=== PATIENT | male | born 1960 | race Caucasian/White ===

== ENCOUNTER → 2017-01-18 | Outpatient (CLI) | payer BC ==
[~2017-01-18] MED LIST: ADVAIR HFA120 INHAL1 IH; ATIVAN2 MG PO; BISOPROLOL FUMAR5 MG PO; BISOPROLOL-HCT1 EAC1 PO; DIOVAN160 MG PO; LOSARTAN POTAS100 MG PO; LOSARTAN-HCTZ1 EAC2 PO; OXYCODONE HCL5 MG PO; PANTOPRAZOLE SO40 MG PO; POTASSIUM CHLO20 ME1 PO; PRADAXA150 MG PO; SENNA-TIME S T1 EACH PO; THERAGRAN1 TABLET PO; VITAMIN B-1100 MG PO; ZIAC
== END | disposition home or self-care (01) ==
LOC: NUC 08:58
DX: S22.32XA Fracture of one rib, left side, initial encounter for closed fracture (principal); R93.7 Abnormal findings on diagnostic imaging of other parts of musculoskeletal system
CPT/HCPCS: 78306; A9503

== ENCOUNTER → 2017-03-09 | Outpatient (CLI) | payer BC ==
[2017-03-09 10:37] LABS: BASOPHIL COUNT 0.1 K/uL (0-0.1); EOSINOPHIL (%) 0.8 % (0-5); EOSINOPHIL COUNT 0.1 K/uL (0-0.3); HEMATOCRIT 49.5 % (38.0-50.0); IMMATURE GRANULOCYTE (%) 0.4 % (0.0-0.7); INSTRUMENT ABS NEUTROPHIL CT 6.7 K/uL; LYMPHOCYTE COUNT 2.7 K/uL (1.0-2.8); MCH 29.5 PG (29.0-34.0); MCHC 32.9 G/DL (30.0-36.0); MCV 89.5 FL (86-99); MEAN PLAT.VOLUME 9.4 uM^3 (9.0-12.4); MONOCYTE (%) 9.7 % (3-12); NEUTROPHIL (%) 62.9 % (45-76); NEUTROPHIL COUNT 6.7 K/uL (1.8-6.4); PLATELET COUNT 309 K/uL (156-360); RBC DIS.WIDTH-CV 14.2 % (11.8-14.6); RBC DIS.WIDTH-SD 46.7 % (39-53); RED BLOOD COUNT 5.53 M/uL (4.00-5.50); WHITE BLOOD COUNT 10.6 K/uL (4.1-10.2)
[2017-03-09 10:41] LABS: PROTHROMBIN TIME 10.6 (9.2-11.2); PTT 29.1 (25-32)
[2017-03-09 12:24] LABS: ANISOCYTOSIS 1+
[2017-03-09 12:25] LABS: POIKILOCYTOSIS 2+
[2017-03-09 12:26] LABS: PLAT.SUFFICIENCY ADEQUATE
[2017-03-12 12:42] LABS: Flow Number of Markers 24 (()); Flow Spec Viability 95 % (()); Flow Specimen Type BONE MARROW (())
== END | disposition home or self-care (01) ==
LOC: OPR 03-06 10:00 → EDSTATUS 10:00
PROVIDERS: Internal Medicine Medical Oncology
DX: D47.2 Monoclonal gammopathy (principal); I48.91 Unspecified atrial fibrillation; J44.9 Chronic obstructive pulmonary disease, unspecified; I10 Essential (primary) hypertension; E11.9 Type 2 diabetes mellitus without complications; F17.210 Nicotine dependence, cigarettes, uncomplicated; Z79.02 Long term (current) use of antithrombotics/antiplatelets; Z83.3 Family history of diabetes mellitus; Z81.1 Family history of alcohol abuse and dependence
CPT/HCPCS: 77012; 85025; 85610; 85730; 85999; 88184 90; 88185 90; 88189 90; J3010

== ENCOUNTER 2017-05-06 22:05 | Inpatient (IN) | payer BC ==
[~2017-05-06] VITALS: Ht 185.4 cm; Wt 103.6 kg
[2017-05-06 22:53] LABS: MCH 27.8 PG (29.0-34.0); MCHC 35.2 G/DL (30.0-36.0); MCV 78.8 FL (86-99); MEAN PLAT.VOLUME 9.5 uM^3 (9.0-12.4); PLATELET COUNT 178 K/uL (156-360); RBC DIS.WIDTH-CV 15.1 % (11.8-14.6); RBC DIS.WIDTH-SD 42.4 % (39-53); RED BLOOD COUNT 6.09 M/uL (4.00-5.50)
[2017-05-06 22:57] LABS: CARBON DIOXIDE (BICARBONATE) 19.3 MEQ/L (20-31)
[2017-05-06 22:59] LABS: INTER. NORMALIZED RATIO 0.9
[2017-05-06 23:01] LABS: PTT 37.9 SEC (25-37)
[2017-05-06 23:04] LABS: CHLORIDE 92 mEq/L (99-109); POTASSIUM 4.2 mEq/L (3.7-5.4); SODIUM 124 mEq/L (136-147)
[2017-05-06 23:06] LABS: GLUCOSE 117 mg/dL (70-99)
[2017-05-06 23:07] LABS: ANION GAP 15 MEQ/L (2-14)
[2017-05-06 23:08] LABS: TOTAL BILIRUBIN 1.1 mg/dL (0.0-1.0)
[2017-05-06 23:09] LABS: ALKALINE PHOSPHATASE 135 IU/L (3-129); SERUM ETHYL ALCOHOL < 10 mg/dL
[2017-05-06 23:10] LABS: GFR ESTIMATE (CALCULATED) > 59 mL/min/
[2017-05-06 23:11] LABS: UREA NITROGEN (BUN) 9 mg/dL (9-23)
[2017-05-06 23:13] LABS: LIPASE 52 U/L (1.0-51.0); TOTAL CK 2576 IU/L (1-294)
[2017-05-06 23:19] LABS: TROP-I INTERPRETATION NEGATIVE; TROPONIN-I 0.01 ng/mL (0.0-0.30)
[2017-05-06 23:20] LABS: CK-MB 22.1 ng/mL (0.0-4.9)
[2017-05-06 23:31] LABS: CREATINE KINASE 2576 IU/L (1-294)
[2017-05-07] VITALS (18 sets, daily range): BP systolic 128–179; BP diastolic 76–147
[2017-05-07] MEDS ORDERED: BISOPROLOL FUMAR5 MG PO (00:03)
[2017-05-07 04:39] LABS: MAGNESIUM 1.4 mg/dL (1.3-2.7)
[2017-05-07 05:45] LABS: METH RESISTANT S AUREUS PCR NEGATIVE (NEGATIVE)
[2017-05-07 05:47] LABS: PROBE CHECK PASS; SPECIMEN PROCESSING CONTROL PASS
[2017-05-07 07:08] LABS: ANION GAP 6 MEQ/L (2-14); CHLORIDE 95 MEQ/L (99-109); GFR ESTIMATE (CALCULATED) > 59 mL/min/; GLUCOSE 111 mg/dL (70-99); MAGNESIUM 1.7 mg/dl (1.3-2.7); POTASSIUM 4.5 MEQ/L (3.7-5.4); SAMPLE HEMOLYSIS CHECK 0; SAMPLE ICTERIC CHECK 0; SAMPLE LIPEMIA CHECK 0; SODIUM 127 MEQ/L (136-147); UREA NITROGEN (BUN) 8 mg/dL (9-23)
[2017-05-07 07:15] LABS: CREATINE KINASE 1564 IU/L (1-294)
[2017-05-08] VITALS (25 sets, daily range): BP systolic 44–177; BP diastolic 30–115
[2017-05-08 10:13] LABS: BASOPHIL COUNT 0.1 K/uL (0-0.1); EOSINOPHIL (%) 0.9 % (0-5); EOSINOPHIL COUNT 0.1 K/uL (0-0.3); HEMATOCRIT 45.4 % (38.0-50.0); IMMATURE GRANULOCYTE (%) 0.7 % (0.0-0.7); IMMATURE GRANULOCYTE COUNT 0.1 K/uL; INSTRUMENT ABS NEUTROPHIL CT 6.1 K/uL; LYMPHOCYTE COUNT 2.7 K/uL (1.0-2.8); MCH 28.9 PG (29.0-34.0); MCHC 34.6 G/DL (30.0-36.0); MEAN PLAT.VOLUME 10.7 uM^3 (9.0-12.4); MONOCYTE (%) 12.2 % (3-12); MONOCYTE COUNT 1.2 K/uL (0-0.8); NEUTROPHIL (%) 59.5 % (45-76); NEUTROPHIL COUNT 6.1 K/uL (1.8-6.4); NRBC (%) 0.3 /100 WBC (0-0); PLATELET COUNT 150 K/uL (156-360); RBC DIS.WIDTH-CV 16.2 % (11.8-14.6); RBC DIS.WIDTH-SD 47.6 % (39-53); RED BLOOD COUNT 5.44 M/uL (4.00-5.50); WHITE BLOOD COUNT 10.2 K/uL (4.1-10.2)
[2017-05-08 10:15] LABS: MCV 83.5 FL (86-99); PROTHROMBIN TIME 11.1 SEC (10.2-12.9)
[2017-05-08 10:18] LABS: PTT 46.6 SEC (25-37)
[2017-05-08 10:25] LABS: ADD MIUA? YES; BILIRUBIN NEGATIVE; BLOOD LARGE; COLOR YELLOW ((YELLOW)); GLUCOSE (STRIP) 50; KETONES 5; LEUKOCYTES NEGATIVE; NITRITE NEGATIVE; PROTEIN (STRIP) NEGATIVE; SPECIFIC GRAVITY 1.009 (1.000-1.030)
[2017-05-08 10:39] LABS: RED BLOOD CELLS TNTC /HPF (0-5); WHITE BLOOD CELLS 0-5 /HPF (0-5)
[2017-05-08 10:40] LABS: BACTERIA RARE /HPF; EPITHELIAL CELLS RARE /HPF; MUCUS RARE /LPF; UCUL ADDED? YES
[2017-05-08 10:43] LABS: ALKALINE PHOSPHATASE 106 IU/L (3-129); ANION GAP 7 MEQ/L (2-14); CHLORIDE 94 MEQ/L (99-109); GFR ESTIMATE (CALCULATED) > 59 mL/min/; GLUCOSE 92 mg/dL (70-99); POTASSIUM 4.3 MEQ/L (3.7-5.4); SAMPLE HEMOLYSIS CHECK 0; SAMPLE ICTERIC CHECK 0; SAMPLE LIPEMIA CHECK 0; SODIUM 127 MEQ/L (136-147); TOTAL BILIRUBIN 1.3 MG/DL (0.0-1.0); UREA NITROGEN (BUN) 10 mg/dL (9-23)
[2017-05-08 16:58] LABS: ANION GAP 8 MEQ/L (2-14); CHLORIDE 91 MEQ/L (99-109); GFR ESTIMATE (CALCULATED) > 59 mL/min/; GLUCOSE 87 mg/dL (70-99); POTASSIUM 3.9 MEQ/L (3.7-5.4); SAMPLE HEMOLYSIS CHECK 0; SAMPLE ICTERIC CHECK 0; SAMPLE LIPEMIA CHECK 0; SODIUM 126 MEQ/L (136-147); UREA NITROGEN (BUN) 9 mg/dL (9-23)
[2017-05-09] VITALS (24 sets, daily range): BP systolic 115–197; BP diastolic 73–124
[2017-05-09 06:07] LABS: BASOPHIL COUNT 0.1 K/uL (0-0.1); EOSINOPHIL (%) 1.9 % (0-5); EOSINOPHIL COUNT 0.2 K/uL (0-0.3); IMMATURE GRANULOCYTE (%) 0.5 % (0.0-0.7); IMMATURE GRANULOCYTE COUNT 0.1 K/uL; INSTRUMENT ABS NEUTROPHIL CT 6.2 K/uL; LYMPHOCYTE COUNT 1.8 K/uL (1.0-2.8); MCHC 33.8 G/DL (30.0-36.0); MCV 82.9 FL (86-99); MEAN PLAT.VOLUME 11.3 uM^3 (9.0-12.4); MONOCYTE (%) 11.7 % (3-12); MONOCYTE COUNT 1.1 K/uL (0-0.8); NEUTROPHIL (%) 65.6 % (45-76); NEUTROPHIL COUNT 6.2 K/uL (1.8-6.4); NRBC (%) 0.2 /100 WBC (0-0); PLATELET COUNT 158 K/uL (156-360); RBC DIS.WIDTH-CV 15.8 % (11.8-14.6); RBC DIS.WIDTH-SD 46.8 % (39-53); RED BLOOD COUNT 5.43 M/uL (4.00-5.50); WHITE BLOOD COUNT 9.4 K/uL (4.1-10.2)
[2017-05-09 06:19] LABS: PROTHROMBIN TIME 10.9 SEC (10.2-12.9)
[2017-05-09 06:22] LABS: PTT 50.3 SEC (25-37)
[2017-05-09 06:35] LABS: ANION GAP 10 MEQ/L (2-14); CHLORIDE 91 MEQ/L (99-109); GFR ESTIMATE (CALCULATED) > 59 mL/min/; GLUCOSE 87 mg/dL (70-99); POTASSIUM 3.8 MEQ/L (3.7-5.4); SAMPLE HEMOLYSIS CHECK 0; SAMPLE ICTERIC CHECK 0; SAMPLE LIPEMIA CHECK 0; SODIUM 130 MEQ/L (136-147); UREA NITROGEN (BUN) 10 mg/dL (9-23)
[2017-05-09 08:19] LABS: BASE EXCESS 5.6 mEq/L (-3 to +3); BICARBONATE 28.9 mEq/L (22-26); CARBOXY HGB 2.4 % (0-5); METHEMOGLOBIN 1.3 % (0-1.5); PCO2 37 mm Hg (35-45); PO2 60 mm Hg (80-100)
[2017-05-09 08:35] LABS: COMMENTS - BLOOD GASES A+C+; DEVICE NC; O2 FLOW 3 L/MIN; SITE RR; TOTAL RESP RATE 28 resp/min
[2017-05-09 12:32] LABS: MAGNESIUM 1.5 mg/dl (1.3-2.7)
[2017-05-10] VITALS (24 sets, daily range): BP systolic 95–201; BP diastolic 65–152
[2017-05-10 04:47] LABS: HEMATOCRIT 46.1 % (38.0-50.0); MCHC 34.3 G/DL (30.0-36.0); MCV 81.7 FL (86-99); MEAN PLAT.VOLUME 10.2 uM^3 (9.0-12.4); NRBC (%) 0.2 /100 WBC (0-0); PLATELET COUNT 179 K/uL (156-360); RBC DIS.WIDTH-CV 15.9 % (11.8-14.6); RBC DIS.WIDTH-SD 46.6 % (39-53); RED BLOOD COUNT 5.64 M/uL (4.00-5.50); WHITE BLOOD COUNT 8.8 K/uL (4.1-10.2)
[2017-05-10 05:15] LABS: CHLORIDE 93 mEq/L (99-109); SODIUM 131 mEq/L (136-147)
[2017-05-10 05:17] LABS: GLUCOSE 91 mg/dL (70-99)
[2017-05-10 05:19] LABS: ANION GAP 15 MEQ/L (2-14)
[2017-05-10 05:21] LABS: GFR ESTIMATE (CALCULATED) > 59 mL/min/
[2017-05-10 05:22] LABS: UREA NITROGEN (BUN) 12 mg/dL (9-23)
[2017-05-10 06:15] LABS: BASE EXCESS 4.1 mEq/L (-3 to +3); BICARBONATE 29.2 mEq/L (22-26); CARBOXY HGB 2.2 % (0-5); METHEMOGLOBIN 1.5 % (0-1.5); PO2 52 mm Hg (80-100); pH 7.43 (7.35-7.45)
[2017-05-10 06:16] LABS: PCO2 44 mm Hg (35-45)
[2017-05-10 06:17] LABS: DEVICE NC; O2 FLOW 3 L/MIN; SITE RR; TOTAL RESP RATE 42 resp/min
[2017-05-10 12:00] LABS: BASE EXCESS 0 mEq/L (-3 to +3); BICARBONATE 25.4 mEq/L (22-26); CARBOXY HGB 1.9 % (0-5); METHEMOGLOBIN 1.5 % (0-1.5); PCO2 43 mm Hg (35-45); pH 7.38 (7.35-7.45)
[2017-05-10 12:01] LABS: COMMENTS - BLOOD GASES NAC+; DEVICE VENT; FI02 100 %; MECHANICAL RATE 18 resp/min; MODE A/C; PEEP 5 CM/H20; PO2 240 mm Hg (80-100); SITE RR; TIDAL VOLUME 500 ML; TOTAL RESP RATE 18 resp/min
[2017-05-11] VITALS (24 sets, daily range): BP systolic 94–176; BP diastolic 59–111
[2017-05-11 06:26] LABS: BASOPHIL COUNT 0.1 K/uL (0-0.1); EOSINOPHIL (%) 1.8 % (0-5); EOSINOPHIL COUNT 0.2 K/uL (0-0.3); HEMATOCRIT 44.5 % (38.0-50.0); IMMATURE GRANULOCYTE (%) 0.6 % (0.0-0.7); IMMATURE GRANULOCYTE COUNT 0.1 K/uL; INSTRUMENT ABS NEUTROPHIL CT 5.1 K/uL; LYMPHOCYTE COUNT 1.5 K/uL (1.0-2.8); MCHC 33.3 G/DL (30.0-36.0); MCV 84.3 FL (86-99); MEAN PLAT.VOLUME 10.3 uM^3 (9.0-12.4); MONOCYTE (%) 17.1 % (3-12); MONOCYTE COUNT 1.4 K/uL (0-0.8); NEUTROPHIL COUNT 5.1 K/uL (1.8-6.4); PLATELET COUNT 208 K/uL (156-360); RBC DIS.WIDTH-CV 16.3 % (11.8-14.6); RED BLOOD COUNT 5.28 M/uL (4.00-5.50); WHITE BLOOD COUNT 8.2 K/uL (4.1-10.2)
[2017-05-11 06:40] LABS: PROTHROMBIN TIME 11.3 SEC (10.2-12.9)
[2017-05-11 06:43] LABS: PTT 66.4 SEC (25-37)
[2017-05-11 07:57] LABS: ANION GAP 13 MEQ/L (2-14); CHLORIDE 99 MEQ/L (99-109); GFR ESTIMATE (CALCULATED) > 59 mL/min/; GLUCOSE 96 mg/dL (70-99); MAGNESIUM 1.9 mg/dl (1.3-2.7); SAMPLE HEMOLYSIS CHECK 0; SAMPLE ICTERIC CHECK 0; SAMPLE LIPEMIA CHECK 0; SODIUM 135 MEQ/L (136-147); UREA NITROGEN (BUN) 15 mg/dL (9-23)
[2017-05-11 10:41] LABS: BASE EXCESS 1.6 mEq/L (-3 to +3); BICARBONATE 27.2 mEq/L (22-26); CARBOXY HGB 1.8 % (0-5); METHEMOGLOBIN 1.6 % (0-1.5); PCO2 45 mm Hg (35-45); pH 7.39 (7.35-7.45)
[2017-05-11 10:42] LABS: COMMENTS - BLOOD GASES A+C+; DEVICE VENT; FI02 50 %; MECHANICAL RATE 18 resp/min; PEEP 5 CM/H20; PO2 89 mm Hg (80-100); SITE RR; TIDAL VOLUME 500 ML; TOTAL RESP RATE 18 resp/min
[2017-05-12] VITALS (29 sets, daily range): BP systolic 66–215; BP diastolic 47–139
[2017-05-12 05:43] LABS: HEMATOCRIT 43.2 % (38.0-50.0); MCH 28.1 PG (29.0-34.0); MCHC 32.9 G/DL (30.0-36.0); MCV 85.5 FL (86-99); MEAN PLAT.VOLUME 10.3 uM^3 (9.0-12.4); NRBC (%) 0.3 /100 WBC (0-0); PLATELET COUNT 236 K/uL (156-360); RBC DIS.WIDTH-CV 16.8 % (11.8-14.6); RED BLOOD COUNT 5.05 M/uL (4.00-5.50); WHITE BLOOD COUNT 11.9 K/uL (4.1-10.2)
[2017-05-13] VITALS (22 sets, daily range): BP systolic 93–146; BP diastolic 61–93
[2017-05-13 00:11] LABS: BASE EXCESS 1.4 mEq/L (-3 to +3); BICARBONATE 28.5 mEq/L (22-26); CARBOXY HGB 1.8 % (0-5); METHEMOGLOBIN 1.6 % (0-1.5); pH 7.33 (7.35-7.45)
[2017-05-13 00:12] LABS: COMMENTS - BLOOD GASES C+; DEVICE VENT; FI02 80 %; MECHANICAL RATE 16 resp/min; MODE AC; PCO2 54 mm Hg (35-45); PO2 123 mm Hg (80-100); PRES. SUPPORT 5 CM/H2O; SITE LR; TIDAL VOLUME 500 ML; TOTAL RESP RATE 16 resp/min
[2017-05-13 15:37] LABS: BASE EXCESS 1.2 mEq/L (-3 to +3); BICARBONATE 26.6 mEq/L (22-26); CARBOXY HGB 2.3 % (0-5); METHEMOGLOBIN 1.5 % (0-1.5); pH 7.39 (7.35-7.45)
[2017-05-13 15:38] LABS: COMMENTS - BLOOD GASES A+C+; DEVICE 840; FI02 45 %; MECHANICAL RATE 20 resp/min; MODE AC; PCO2 44 mm Hg (35-45); PEEP 5 CM/H20; PO2 65 mm Hg (80-100); SITE LR; TIDAL VOLUME 500 ML; TOTAL RESP RATE 20 resp/min
[2017-05-14] VITALS (23 sets, daily range): BP systolic 103–172; BP diastolic 73–115
[2017-05-14 13:02] LABS: ANION GAP 8 MEQ/L (2-14); CHLORIDE 100 MEQ/L (99-109); POTASSIUM 4.3 MEQ/L (3.7-5.4); SAMPLE HEMOLYSIS CHECK 0; SAMPLE ICTERIC CHECK 0; SAMPLE LIPEMIA CHECK 0; SODIUM 132 MEQ/L (136-147)
[2017-05-14 13:10] LABS: GFR ESTIMATE (CALCULATED) > 59 mL/min/; GLUCOSE 100 mg/dL (70-99); UREA NITROGEN (BUN) 10 mg/dL (9-23)
[2017-05-15] VITALS (20 sets, daily range): BP systolic 111–152; BP diastolic 74–101
[2017-05-15 03:53] LABS: HEMATOCRIT 43.4 % (38.0-50.0); MCH 28.2 PG (29.0-34.0); MCHC 33.2 G/DL (30.0-36.0); MCV 85.1 FL (86-99); MEAN PLAT.VOLUME 9.7 uM^3 (9.0-12.4); NRBC (%) 0.3 /100 WBC (0-0); PLATELET COUNT 434 K/uL (156-360); RBC DIS.WIDTH-CV 17.4 % (11.8-14.6); WHITE BLOOD COUNT 9.9 K/uL (4.1-10.2)
[2017-05-16] VITALS (19 sets, daily range): BP systolic 112–160; BP diastolic 67–111
[2017-05-16 08:57] LABS: HEMATOCRIT 40.8 % (38.0-50.0); MCH 28.9 PG (29.0-34.0); MCHC 33.8 G/DL (30.0-36.0); MCV 85.5 FL (86-99); MEAN PLAT.VOLUME 10.4 uM^3 (9.0-12.4); NRBC (%) 0.2 /100 WBC (0-0); PLATELET COUNT 501 K/uL (156-360); RBC DIS.WIDTH-CV 17.4 % (11.8-14.6); RBC DIS.WIDTH-SD 52.9 % (39-53); RED BLOOD COUNT 4.77 M/uL (4.00-5.50); WHITE BLOOD COUNT 8.7 K/uL (4.1-10.2)
[2017-05-16 09:27] LABS: ANION GAP 11 MEQ/L (2-14); CHLORIDE 100 MEQ/L (99-109); GFR ESTIMATE (CALCULATED) > 59 mL/min/; GLUCOSE 130 mg/dL (70-99); MAGNESIUM 1.8 mg/dl (1.3-2.7); POTASSIUM 3.8 MEQ/L (3.7-5.4); SAMPLE HEMOLYSIS CHECK 0; SAMPLE ICTERIC CHECK 0; SAMPLE LIPEMIA CHECK 0; SODIUM 136 MEQ/L (136-147); UREA NITROGEN (BUN) 12 mg/dL (9-23)
[2017-05-17] VITALS (18 sets, daily range): BP systolic 105–168; BP diastolic 65–116
[2017-05-17 05:36] LABS: HEMATOCRIT 40.3 % (38.0-50.0); MCH 27.7 PG (29.0-34.0); MCHC 32.8 G/DL (30.0-36.0); MCV 84.7 FL (86-99); MEAN PLAT.VOLUME 9.5 uM^3 (9.0-12.4); NRBC (%) 0.3 /100 WBC (0-0); PLATELET COUNT 556 K/uL (156-360); RBC DIS.WIDTH-CV 17.2 % (11.8-14.6); RBC DIS.WIDTH-SD 52.5 % (39-53); RED BLOOD COUNT 4.76 M/uL (4.00-5.50); WHITE BLOOD COUNT 10.3 K/uL (4.1-10.2)
[2017-05-18] VITALS (24 sets, daily range): BP systolic 99–147; BP diastolic 58–96
[2017-05-18 06:35] LABS: ANION GAP 10 MEQ/L (2-14); CHLORIDE 96 MEQ/L (99-109); GFR ESTIMATE (CALCULATED) > 59 mL/min/; GLUCOSE 154 mg/dL (70-99); POTASSIUM 3.8 MEQ/L (3.7-5.4); SAMPLE HEMOLYSIS CHECK 0; SAMPLE ICTERIC CHECK 0; SAMPLE LIPEMIA CHECK 0; SODIUM 138 MEQ/L (136-147); UREA NITROGEN (BUN) 11 mg/dL (9-23)
[2017-05-18 11:07] LABS: MAGNESIUM 1.8 mg/dl (1.3-2.7)
[2017-05-18 11:11] LABS: BASOPHIL COUNT 0.1 K/uL (0-0.1); EOSINOPHIL (%) 1.6 % (0-5); EOSINOPHIL COUNT 0.2 K/uL (0-0.3); HEMATOCRIT 41.9 % (38.0-50.0); IMMATURE GRANULOCYTE (%) 1.7 % (0.0-0.7); IMMATURE GRANULOCYTE COUNT 0.2 K/uL; INSTRUMENT ABS NEUTROPHIL CT 6.8 K/uL; LYMPHOCYTE COUNT 1.6 K/uL (1.0-2.8); MCHC 32.7 G/DL (30.0-36.0); MCV 85.5 FL (86-99); MEAN PLAT.VOLUME 9.2 uM^3 (9.0-12.4); MONOCYTE (%) 11.5 % (3-12); MONOCYTE COUNT 1.1 K/uL (0-0.8); NEUTROPHIL (%) 68.9 % (45-76); NEUTROPHIL COUNT 6.8 K/uL (1.8-6.4); NRBC (%) 0.2 /100 WBC (0-0); PLATELET COUNT 629 K/uL (156-360); RBC DIS.WIDTH-CV 17.4 % (11.8-14.6); RBC DIS.WIDTH-SD 53.2 % (39-53); WHITE BLOOD COUNT 9.9 K/uL (4.1-10.2)
[2017-05-18 13:04] LABS: ADD MIUA? YES; BILIRUBIN NEGATIVE; BLOOD NEGATIVE; COLOR YELLOW ((YELLOW)); GLUCOSE (STRIP) NEGATIVE; KETONES NEGATIVE; LEUKOCYTES NEGATIVE; NITRITE NEGATIVE; PROTEIN (STRIP) NEGATIVE; SPECIFIC GRAVITY 1.015 (1.000-1.030)
[2017-05-18 13:22] LABS: BACTERIA RARE /HPF; EPITHELIAL CELLS RARE /HPF; HYALINE CASTS 0-5 /LPF; MUCUS TRACE /LPF; RED BLOOD CELLS 0-5 /HPF (0-5); WHITE BLOOD CELLS 0-5 /HPF (0-5)
[2017-05-19] VITALS (18 sets, daily range): BP systolic 103–143; BP diastolic 59–93
[2017-05-19 05:24] LABS: MCH 28.1 PG (29.0-34.0); MCHC 32.8 G/DL (30.0-36.0); MCV 85.7 FL (86-99); MEAN PLAT.VOLUME 9.7 uM^3 (9.0-12.4); PLATELET COUNT 666 K/uL (156-360); RBC DIS.WIDTH-CV 17.5 % (11.8-14.6); RBC DIS.WIDTH-SD 53.6 % (39-53); RED BLOOD COUNT 4.67 M/uL (4.00-5.50); WHITE BLOOD COUNT 9.1 K/uL (4.1-10.2)
[2017-05-19 08:56] LABS: BASE EXCESS 8.3 mEq/L (-3 to +3); CARBOXY HGB 2.3 % (0-5); METHEMOGLOBIN 1.5 % (0-1.5); PCO2 47 mm Hg (35-45); PO2 69 mm Hg (80-100); pH 7.46 (7.35-7.45)
[2017-05-19 08:57] LABS: BICARBONATE 33.4 mEq/L (22-26); COMMENTS - BLOOD GASES +C; DEVICE PB840; FI02 40 %; MODE SPONT; PEEP 5 CM/H20; PRES. SUPPORT 8 CM/H2O; SITE RR +A; TOTAL RESP RATE 43 resp/min
[2017-05-19 14:08] LABS: ANION GAP 10 MEQ/L (2-14); CHLORIDE 96 MEQ/L (99-109); GFR ESTIMATE (CALCULATED) > 59 mL/min/; GLUCOSE 164 mg/dL (70-99); MAGNESIUM 1.9 mg/dl (1.3-2.7); SAMPLE HEMOLYSIS CHECK 0; SAMPLE ICTERIC CHECK 0; SAMPLE LIPEMIA CHECK 0; SODIUM 137 MEQ/L (136-147); UREA NITROGEN (BUN) 13 mg/dL (9-23)
[2017-05-20] VITALS (22 sets, daily range): BP systolic 102–137; BP diastolic 57–92
[2017-05-21] VITALS (23 sets, daily range): BP systolic 91–157; BP diastolic 62–105
[2017-05-21 07:11] LABS: HEMATOCRIT 40.3 % (38.0-50.0); MCH 29.6 PG (29.0-34.0); MCHC 34.2 G/DL (30.0-36.0); MCV 86.5 FL (86-99); MEAN PLAT.VOLUME 9.4 uM^3 (9.0-12.4); PLATELET COUNT 669 K/uL (156-360); RBC DIS.WIDTH-CV 17.3 % (11.8-14.6); RBC DIS.WIDTH-SD 53.8 % (39-53); RED BLOOD COUNT 4.66 M/uL (4.00-5.50); WHITE BLOOD COUNT 11.3 K/uL (4.1-10.2)
[2017-05-21 07:26] LABS: INTER. NORMALIZED RATIO 1.1; PROTHROMBIN TIME 12.2 SEC (10.2-12.9)
[2017-05-21 07:28] LABS: PTT 37.7 SEC (25-37)
[2017-05-21 07:51] LABS: ALKALINE PHOSPHATASE 94 IU/L (3-129); ANION GAP 9 MEQ/L (2-14); CHLORIDE 96 MEQ/L (99-109); GFR ESTIMATE (CALCULATED) > 59 mL/min/; GLUCOSE 142 mg/dL (70-99); SAMPLE HEMOLYSIS CHECK 0; SAMPLE ICTERIC CHECK 0; SAMPLE LIPEMIA CHECK 0; SODIUM 134 MEQ/L (136-147); TOTAL BILIRUBIN 0.6 MG/DL (0.0-1.0); UREA NITROGEN (BUN) 15 mg/dL (9-23)
[2017-05-22] VITALS (21 sets, daily range): BP systolic 93–153; BP diastolic 61–102
[2017-05-22 05:47] LABS: BASOPHIL COUNT 0.1 K/uL (0-0.1); EOSINOPHIL (%) 3.3 % (0-5); EOSINOPHIL COUNT 0.4 K/uL (0-0.3); IMMATURE GRANULOCYTE (%) 0.6 % (0.0-0.7); IMMATURE GRANULOCYTE COUNT 0.1 K/uL; INSTRUMENT ABS NEUTROPHIL CT 7.8 K/uL; LYMPHOCYTE COUNT 1.7 K/uL (1.0-2.8); MCH 29.3 PG (29.0-34.0); MCHC 33.4 G/DL (30.0-36.0); MCV 87.6 FL (86-99); MEAN PLAT.VOLUME 9.7 uM^3 (9.0-12.4); MONOCYTE (%) 11.1 % (3-12); MONOCYTE COUNT 1.2 K/uL (0-0.8); NEUTROPHIL (%) 69.7 % (45-76); NEUTROPHIL COUNT 7.8 K/uL (1.8-6.4); PLATELET COUNT 682 K/uL (156-360); RBC DIS.WIDTH-CV 17.2 % (11.8-14.6); RBC DIS.WIDTH-SD 54.5 % (39-53); RED BLOOD COUNT 4.68 M/uL (4.00-5.50); WHITE BLOOD COUNT 11.2 K/uL (4.1-10.2)
[2017-05-22 06:11] LABS: ANION GAP 7 MEQ/L (2-14); CHLORIDE 96 MEQ/L (99-109); GFR ESTIMATE (CALCULATED) > 59 mL/min/; GLUCOSE 112 mg/dL (70-99); POTASSIUM 4.1 MEQ/L (3.7-5.4); SAMPLE HEMOLYSIS CHECK 0; SAMPLE ICTERIC CHECK 0; SAMPLE LIPEMIA CHECK 0; SODIUM 135 MEQ/L (136-147); UREA NITROGEN (BUN) 15 mg/dL (9-23)
[2017-05-23] VITALS (24 sets, daily range): BP systolic 95–171; BP diastolic 56–115
[2017-05-23 10:08] LABS: BASOPHIL COUNT 0.1 K/uL (0-0.1); EOSINOPHIL (%) 1.6 % (0-5); EOSINOPHIL COUNT 0.2 K/uL (0-0.3); IMMATURE GRANULOCYTE (%) 0.7 % (0.0-0.7); IMMATURE GRANULOCYTE COUNT 0.1 K/uL; INSTRUMENT ABS NEUTROPHIL CT 8.3 K/uL; LYMPHOCYTE COUNT 1.2 K/uL (1.0-2.8); MCH 28.8 PG (29.0-34.0); MCV 87.3 FL (86-99); MEAN PLAT.VOLUME 9.8 uM^3 (9.0-12.4); MONOCYTE (%) 8.7 % (3-12); MONOCYTE COUNT 0.9 K/uL (0-0.8); NEUTROPHIL (%) 77.2 % (45-76); NEUTROPHIL COUNT 8.3 K/uL (1.8-6.4); PLATELET COUNT 711 K/uL (156-360); RBC DIS.WIDTH-CV 17.2 % (11.8-14.6); RED BLOOD COUNT 5.04 M/uL (4.00-5.50); WHITE BLOOD COUNT 10.7 K/uL (4.1-10.2)
[2017-05-23 10:12] LABS: INTER. NORMALIZED RATIO 1.1; PROTHROMBIN TIME 11.7 SEC (10.2-12.9)
[2017-05-23 10:14] LABS: PTT 33.2 SEC (25-37)
[2017-05-23 10:21] LABS: ANION GAP 7 MEQ/L (2-14); CHLORIDE 99 MEQ/L (99-109); SAMPLE HEMOLYSIS CHECK 0; SAMPLE ICTERIC CHECK 0; SAMPLE LIPEMIA CHECK 0; SODIUM 137 MEQ/L (136-147)
[2017-05-23 10:27] LABS: GFR ESTIMATE (CALCULATED) > 59 mL/min/; GLUCOSE 142 mg/dL (70-99); UREA NITROGEN (BUN) 21 mg/dL (9-23)
[2017-05-23 10:36] LABS: POC NON-PRINT COM 1 ND
[2017-05-23 10:39] LABS: POC NON-PRINT COM 1 ND
[2017-05-23 10:40] LABS: FIBRINOGEN 710 mg/dL (150-450)
[2017-05-23 19:46] LABS: BICARBONATE 30.6 mEq/L (22-26); METHEMOGLOBIN 1.6 % (0-1.5); PCO2 43 mm Hg (35-45); PO2 74 mm Hg (80-100); pH 7.46 (7.35-7.45)
[2017-05-23 19:47] LABS: COMMENTS - BLOOD GASES C+A+; DEVICE 840 VENT; FI02 35 %; MODE SPONT; PEEP 5 CM/H20; PRES. SUPPORT 10 CM/H2O; SITE RR; TOTAL RESP RATE 18 resp/min
[2017-05-24] VITALS (22 sets, daily range): BP systolic 116–157; BP diastolic 72–112
[2017-05-24 05:20] LABS: HEMATOCRIT 41.4 % (38.0-50.0); MCH 29.5 PG (29.0-34.0); MCHC 33.3 G/DL (30.0-36.0); MCV 88.5 FL (86-99); MEAN PLAT.VOLUME 9.6 uM^3 (9.0-12.4); PLATELET COUNT 736 K/uL (156-360); RBC DIS.WIDTH-CV 17.1 % (11.8-14.6); RBC DIS.WIDTH-SD 54.6 % (39-53); RED BLOOD COUNT 4.68 M/uL (4.00-5.50); WHITE BLOOD COUNT 13.3 K/uL (4.1-10.2)
[2017-05-25] VITALS (24 sets, daily range): BP systolic 85–144; BP diastolic 56–94
[2017-05-25 05:25] LABS: BASOPHIL COUNT 0.1 K/uL (0-0.1); EOSINOPHIL (%) 3.3 % (0-5); EOSINOPHIL COUNT 0.5 K/uL (0-0.3); HEMATOCRIT 43.5 % (38.0-50.0); IMMATURE GRANULOCYTE (%) 0.6 % (0.0-0.7); IMMATURE GRANULOCYTE COUNT 0.1 K/uL; INSTRUMENT ABS NEUTROPHIL CT 10.6 K/uL; LYMPHOCYTE COUNT 1.7 K/uL (1.0-2.8); MCH 28.7 PG (29.0-34.0); MCHC 32.9 G/DL (30.0-36.0); MCV 87.3 FL (86-99); MEAN PLAT.VOLUME 9.6 uM^3 (9.0-12.4); MONOCYTE (%) 10.6 % (3-12); MONOCYTE COUNT 1.5 K/uL (0-0.8); NEUTROPHIL (%) 73.2 % (45-76); NEUTROPHIL COUNT 10.6 K/uL (1.8-6.4); PLATELET COUNT 743 K/uL (156-360); RBC DIS.WIDTH-SD 53.6 % (39-53); RED BLOOD COUNT 4.98 M/uL (4.00-5.50); WHITE BLOOD COUNT 14.5 K/uL (4.1-10.2)
[2017-05-25 06:43] LABS: ANION GAP 11 MEQ/L (2-14); CHLORIDE 101 MEQ/L (99-109); GLUCOSE 141 mg/dL (70-99); POTASSIUM 3.5 MEQ/L (3.7-5.4); SAMPLE HEMOLYSIS CHECK 0; SAMPLE ICTERIC CHECK 0; SAMPLE LIPEMIA CHECK 0; SODIUM 143 MEQ/L (136-147); UREA NITROGEN (BUN) 27 mg/dL (9-23)
[2017-05-25 06:47] LABS: GFR ESTIMATE (CALCULATED) 45 mL/min/; MAGNESIUM 2.2 mg/dl (1.3-2.7)
[2017-05-26] VITALS (20 sets, daily range): BP systolic 91–179; BP diastolic 61–115
[2017-05-26 07:39] LABS: BASOPHIL COUNT 0.1 K/uL (0-0.1); EOSINOPHIL (%) 1.8 % (0-5); EOSINOPHIL COUNT 0.3 K/uL (0-0.3); HEMATOCRIT 44.8 % (38.0-50.0); IMMATURE GRANULOCYTE (%) 0.8 % (0.0-0.7); IMMATURE GRANULOCYTE COUNT 0.1 K/uL; INSTRUMENT ABS NEUTROPHIL CT 11.2 K/uL; MCH 28.3 PG (29.0-34.0); MCHC 31.9 G/DL (30.0-36.0); MCV 88.5 FL (86-99); MEAN PLAT.VOLUME 9.9 uM^3 (9.0-12.4); MONOCYTE (%) 10.4 % (3-12); MONOCYTE COUNT 1.6 K/uL (0-0.8); NEUTROPHIL (%) 73.5 % (45-76); NEUTROPHIL COUNT 11.2 K/uL (1.8-6.4); PLATELET COUNT 718 K/uL (156-360); RBC DIS.WIDTH-CV 17.4 % (11.8-14.6); RBC DIS.WIDTH-SD 55.3 % (39-53); RED BLOOD COUNT 5.06 M/uL (4.00-5.50); WHITE BLOOD COUNT 15.3 K/uL (4.1-10.2)
[2017-05-26 08:09] LABS: ANION GAP 15 MEQ/L (2-14); CHLORIDE 104 MEQ/L (99-109); GFR ESTIMATE (CALCULATED) 42 mL/min/; GLUCOSE 135 mg/dL (70-99); POTASSIUM 3.2 MEQ/L (3.7-5.4); SAMPLE HEMOLYSIS CHECK 0; SAMPLE ICTERIC CHECK 0; SAMPLE LIPEMIA CHECK 0; SODIUM 148 MEQ/L (136-147); UREA NITROGEN (BUN) 29 mg/dL (9-23)
[2017-05-26 08:34] LABS: INTER. NORMALIZED RATIO 1.1; PROTHROMBIN TIME 12.4 SEC (10.2-12.9)
[2017-05-26 08:36] LABS: PTT 33.4 SEC (25-37)
[2017-05-26 08:38] LABS: FIBRINOGEN 901 mg/dL (150-450)
[2017-05-27] VITALS (22 sets, daily range): BP systolic 99–141; BP diastolic 66–93
[2017-05-27 09:10] LABS: HEMATOCRIT 44.5 % (38.0-50.0); MCH 27.7 PG (29.0-34.0); MCHC 30.6 G/DL (30.0-36.0); MCV 90.6 FL (86-99); PLATELET COUNT 617 K/uL (156-360); RBC DIS.WIDTH-CV 17.3 % (11.8-14.6); RBC DIS.WIDTH-SD 57.1 % (39-53); RED BLOOD COUNT 4.91 M/uL (4.00-5.50); WHITE BLOOD COUNT 14.5 K/uL (4.1-10.2)
[2017-05-27 09:32] LABS: ANION GAP 11 MEQ/L (2-14); CHLORIDE 109 MEQ/L (99-109); GFR ESTIMATE (CALCULATED) 45 mL/min/; GLUCOSE 169 mg/dL (70-99); POTASSIUM 4.1 MEQ/L (3.7-5.4); SAMPLE HEMOLYSIS CHECK 0; SAMPLE ICTERIC CHECK 0; SAMPLE LIPEMIA CHECK 0; SODIUM 150 MEQ/L (136-147); UREA NITROGEN (BUN) 31 mg/dL (9-23)
[2017-05-28] VITALS (24 sets, daily range): BP systolic 0–167; BP diastolic 0–116
[2017-05-28 11:56] LABS: MCH 27.7 PG (29.0-34.0); MCHC 30.5 G/DL (30.0-36.0); MCV 90.9 FL (86-99); MEAN PLAT.VOLUME 9.7 uM^3 (9.0-12.4); PLATELET COUNT 614 K/uL (156-360); RBC DIS.WIDTH-CV 17.4 % (11.8-14.6); RBC DIS.WIDTH-SD 57.9 % (39-53); RED BLOOD COUNT 4.73 M/uL (4.00-5.50); WHITE BLOOD COUNT 15.9 K/uL (4.1-10.2)
[2017-05-28 12:34] LABS: ANION GAP 8 MEQ/L (2-14); CHLORIDE 113 MEQ/L (99-109); GFR ESTIMATE (CALCULATED) 45 mL/min/; GLUCOSE 165 mg/dL (70-99); POTASSIUM 4.3 MEQ/L (3.7-5.4); SAMPLE HEMOLYSIS CHECK 0; SAMPLE ICTERIC CHECK 0; SAMPLE LIPEMIA CHECK 0; SODIUM 151 MEQ/L (136-147); UREA NITROGEN (BUN) 27 mg/dL (9-23)
[2017-05-28 12:45] LABS: BASOPHIL COUNT 0.1 K/uL (0-0.1); EOSINOPHIL (%) 6.7 % (0-5); EOSINOPHIL COUNT 1.1 K/uL (0-0.3); IMMATURE GRANULOCYTE (%) 0.9 % (0.0-0.7); IMMATURE GRANULOCYTE COUNT 0.1 K/uL; INSTRUMENT ABS NEUTROPHIL CT 10.6 K/uL; LYMPHOCYTE COUNT 2.5 K/uL (1.0-2.8); MONOCYTE (%) 9.3 % (3-12); MONOCYTE COUNT 1.5 K/uL (0-0.8); NEUTROPHIL (%) 66.7 % (45-76); NEUTROPHIL COUNT 10.6 K/uL (1.8-6.4)
[2017-05-29] VITALS (9 sets, daily range): BP systolic 102–147; BP diastolic 68–96
[2017-05-29 05:03] LABS: BASE EXCESS 9.3 mEq/L (-3 to +3); BICARBONATE 33.5 mEq/L (22-26); CARBOXY HGB 2.3 % (0-5); COMMENTS - BLOOD GASES C+A+; DEVICE VENTILATOR; FI02 30 %; INSPIRATION TIME 0.9 seconds; MECHANICAL RATE 15 resp/min; METHEMOGLOBIN 1.6 % (0-1.5); MODE SIMV; PCO2 43 mm Hg (35-45); PO2 68 mm Hg (80-100); PRES. SUPPORT 15 CM/H2O; SITE RR; TIDAL VOLUME 400 ML; TOTAL RESP RATE 19 resp/min
[2017-05-29 05:04] LABS: PEEP 5 CM/H20
[2017-05-29 05:49] LABS: BASOPHIL COUNT 0.1 K/uL (0-0.1); EOSINOPHIL (%) 6.6 % (0-5); HEMATOCRIT 41.7 % (38.0-50.0); IMMATURE GRANULOCYTE (%) 0.7 % (0.0-0.7); IMMATURE GRANULOCYTE COUNT 0.1 K/uL; INSTRUMENT ABS NEUTROPHIL CT 10.1 K/uL; LYMPHOCYTE COUNT 2.3 K/uL (1.0-2.8); MCHC 30.9 G/DL (30.0-36.0); MCV 90.7 FL (86-99); MEAN PLAT.VOLUME 10.4 uM^3 (9.0-12.4); MONOCYTE (%) 9.7 % (3-12); MONOCYTE COUNT 1.5 K/uL (0-0.8); NEUTROPHIL COUNT 10.1 K/uL (1.8-6.4); PLATELET COUNT 615 K/uL (156-360); RBC DIS.WIDTH-CV 17.6 % (11.8-14.6); RBC DIS.WIDTH-SD 58.4 % (39-53)
[2017-05-29 06:17] LABS: ANION GAP 9 MEQ/L (2-14); CHLORIDE 113 MEQ/L (99-109); GFR ESTIMATE (CALCULATED) 45 mL/min/; GLUCOSE 167 mg/dL (70-99); MAGNESIUM 2.4 mg/dl (1.3-2.7); POTASSIUM 4.3 MEQ/L (3.7-5.4); SAMPLE HEMOLYSIS CHECK 0; SAMPLE ICTERIC CHECK 0; SAMPLE LIPEMIA CHECK 0; SODIUM 153 MEQ/L (136-147); UREA NITROGEN (BUN) 26 mg/dL (9-23)
[2017-05-30] VITALS (13 sets, daily range): BP systolic 86–167; BP diastolic 54–113
[2017-05-30 05:33] LABS: HEMATOCRIT 41.6 % (38.0-50.0); MCHC 30.8 G/DL (30.0-36.0); MEAN PLAT.VOLUME 10.5 uM^3 (9.0-12.4); PLATELET COUNT 564 K/uL (156-360); RBC DIS.WIDTH-CV 17.7 % (11.8-14.6); RED BLOOD COUNT 4.57 M/uL (4.00-5.50); WHITE BLOOD COUNT 16.4 K/uL (4.1-10.2)
[2017-05-30 06:23] LABS: ANION GAP 9 MEQ/L (2-14); CHLORIDE 113 MEQ/L (99-109); GFR ESTIMATE (CALCULATED) 51 mL/min/; GLUCOSE 138 mg/dL (70-99); MAGNESIUM 2.5 mg/dl (1.3-2.7); POTASSIUM 4.7 MEQ/L (3.7-5.4); SAMPLE HEMOLYSIS CHECK 0; SAMPLE ICTERIC CHECK 0; SAMPLE LIPEMIA CHECK 0; SODIUM 150 MEQ/L (136-147); UREA NITROGEN (BUN) 31 mg/dL (9-23)
[2017-05-31] VITALS (15 sets, daily range): BP systolic 107–162; BP diastolic 63–115
[2017-05-31 05:18] LABS: HEMATOCRIT 41.6 % (38.0-50.0); MCH 28.2 PG (29.0-34.0); MCHC 31.7 G/DL (30.0-36.0); MCV 88.9 FL (86-99); MEAN PLAT.VOLUME 10.3 uM^3 (9.0-12.4); NRBC (%) 0.1 /100 WBC (0-0); PLATELET COUNT 562 K/uL (156-360); RBC DIS.WIDTH-CV 16.9 % (11.8-14.6); RBC DIS.WIDTH-SD 54.8 % (39-53); RED BLOOD COUNT 4.68 M/uL (4.00-5.50); WHITE BLOOD COUNT 16.3 K/uL (4.1-10.2)
[2017-05-31 05:22] LABS: CHLORIDE 110 mEq/L (99-109); POTASSIUM 5.1 mEq/L (3.7-5.4); SODIUM 145 mEq/L (136-147)
[2017-05-31 05:24] LABS: GLUCOSE 152 mg/dL (70-99)
[2017-05-31 05:25] LABS: ANION GAP 14 MEQ/L (2-14)
[2017-05-31 05:26] LABS: TOTAL BILIRUBIN 0.5 mg/dL (0.0-1.0)
[2017-05-31 05:28] LABS: ALKALINE PHOSPHATASE 130 IU/L (3-129); GFR ESTIMATE (CALCULATED) 56 mL/min/
[2017-05-31 05:29] LABS: UREA NITROGEN (BUN) 34 mg/dL (9-23)
[2017-06-01] VITALS (7 sets, daily range): BP systolic 137–169; BP diastolic 82–109
[2017-06-01 05:23] LABS: HEMATOCRIT 41.4 % (38.0-50.0); MCHC 33.1 G/DL (30.0-36.0); MCV 87.7 FL (86-99); PLATELET COUNT 545 K/uL (156-360); RBC DIS.WIDTH-CV 16.7 % (11.8-14.6); RBC DIS.WIDTH-SD 53.5 % (39-53); RED BLOOD COUNT 4.72 M/uL (4.00-5.50)
[2017-06-01 06:38] LABS: ALKALINE PHOSPHATASE 113 IU/L (3-129); ANION GAP 7 MEQ/L (2-14); CREATINE KINASE 14 IU/L (1-294); GFR ESTIMATE (CALCULATED) > 59 mL/min/; GLUCOSE 222 mg/dL (70-99); POTASSIUM 5.3 MEQ/L (3.7-5.4); SAMPLE HEMOLYSIS CHECK 0; SAMPLE ICTERIC CHECK 0; SAMPLE LIPEMIA CHECK 0; TOTAL BILIRUBIN 0.6 MG/DL (0.0-1.0); UREA NITROGEN (BUN) 39 mg/dL (9-23)
[2017-06-01 06:51] LABS: CHLORIDE 101 MEQ/L (99-109); SODIUM 134 MEQ/L (136-147)
[2017-06-02] VITALS: BP 155/95
[2017-06-02 04:00] VITALS: BP 148/96
[2017-06-02 06:12] LABS: HEMATOCRIT 42.3 % (38.0-50.0); MCH 27.5 PG (29.0-34.0); MCHC 31.7 G/DL (30.0-36.0); MCV 86.7 FL (86-99); MEAN PLAT.VOLUME 10.9 uM^3 (9.0-12.4); NRBC (%) 0.1 /100 WBC (0-0); PLATELET COUNT 548 K/uL (156-360); RBC DIS.WIDTH-CV 16.3 % (11.8-14.6); RBC DIS.WIDTH-SD 51.3 % (39-53); RED BLOOD COUNT 4.88 M/uL (4.00-5.50); WHITE BLOOD COUNT 17.4 K/uL (4.1-10.2)
[2017-06-02 06:31] LABS: ALKALINE PHOSPHATASE 124 IU/L (3-129); ANION GAP 8 MEQ/L (2-14); CHLORIDE 100 MEQ/L (99-109); GFR ESTIMATE (CALCULATED) > 59 mL/min/; GLUCOSE 289 mg/dL (70-99); POTASSIUM 4.8 MEQ/L (3.7-5.4); SAMPLE HEMOLYSIS CHECK 0; SAMPLE ICTERIC CHECK 0; SAMPLE LIPEMIA CHECK 0; SODIUM 133 MEQ/L (136-147); TOTAL BILIRUBIN 0.5 MG/DL (0.0-1.0); UREA NITROGEN (BUN) 38 mg/dL (9-23)
[2017-06-02 08:00] VITALS: BP 157/99
[2017-06-02 12:00] VITALS: BP 149/106
[2017-06-02 16:00] VITALS: BP 147/89
[2017-06-03] VITALS (7 sets, daily range): BP systolic 102–139; BP diastolic 68–97
[2017-06-03 06:27] LABS: ALKALINE PHOSPHATASE 113 IU/L (3-129); ANION GAP 5 MEQ/L (2-14); CHLORIDE 100 MEQ/L (99-109); GFR ESTIMATE (CALCULATED) > 59 mL/min/; GLUCOSE 309 mg/dL (70-99); POTASSIUM 4.9 MEQ/L (3.7-5.4); SAMPLE HEMOLYSIS CHECK 0; SAMPLE ICTERIC CHECK 0; SAMPLE LIPEMIA CHECK 0; SODIUM 133 MEQ/L (136-147); TOTAL BILIRUBIN 0.5 MG/DL (0.0-1.0); UREA NITROGEN (BUN) 35 mg/dL (9-23)
[2017-06-04] VITALS (8 sets, daily range): BP systolic 107–137; BP diastolic 76–98
[2017-06-05] VITALS (9 sets, daily range): BP systolic 101–173; BP diastolic 66–109
[2017-06-05 05:41] LABS: MCH 28.7 PG (29.0-34.0); MCHC 32.9 G/DL (30.0-36.0); MCV 87.4 FL (86-99); MEAN PLAT.VOLUME 11.6 uM^3 (9.0-12.4); PLATELET COUNT 508 K/uL (156-360); RBC DIS.WIDTH-CV 17.6 % (11.8-14.6); RBC DIS.WIDTH-SD 54.2 % (39-53); RED BLOOD COUNT 5.15 M/uL (4.00-5.50); WHITE BLOOD COUNT 22.3 K/uL (4.1-10.2)
[2017-06-06] VITALS (8 sets, daily range): BP systolic 101–133; BP diastolic 71–91
[2017-06-06 05:06] LABS: HEMATOCRIT 44.2 % (38.0-50.0); MCH 28.1 PG (29.0-34.0); MCHC 32.6 G/DL (30.0-36.0); MCV 86.3 FL (86-99); MEAN PLAT.VOLUME 11.2 uM^3 (9.0-12.4); NRBC (%) 0.1 /100 WBC (0-0); PLATELET COUNT 503 K/uL (156-360); RBC DIS.WIDTH-CV 17.8 % (11.8-14.6); RBC DIS.WIDTH-SD 54.4 % (39-53); RED BLOOD COUNT 5.12 M/uL (4.00-5.50); WHITE BLOOD COUNT 21.3 K/uL (4.1-10.2)
[2017-06-06 05:17] LABS: CHLORIDE 108 mEq/L (99-109); POTASSIUM 4.2 mEq/L (3.7-5.4)
[2017-06-06 05:20] LABS: ANION GAP 12 MEQ/L (2-14)
[2017-06-06 05:21] LABS: TOTAL BILIRUBIN 0.5 mg/dL (0.0-1.0)
[2017-06-06 05:23] LABS: ALKALINE PHOSPHATASE 121 IU/L (3-129); GFR ESTIMATE (CALCULATED) 56 mL/min/
[2017-06-06 05:24] LABS: UREA NITROGEN (BUN) 36 mg/dL (9-23)
[2017-06-06 05:29] LABS: GLUCOSE 438 mg/dL (70-99); SODIUM 140 mEq/L (136-147)
[2017-06-06 07:52] LABS: POINT-OF-CARE METER ID UU13113731; POINT-OF-CARE USER ID PHATLC
[2017-06-06 12:39] LABS: TROP-I INTERPRETATION NEGATIVE; TROPONIN-I < 0.01 ng/mL (0.0-0.30)
[2017-06-06 12:56] LABS: POINT-OF-CARE METER ID UU13113803
[2017-06-06 17:27] LABS: POINT-OF-CARE METER ID UU14162636
[2017-06-07] VITALS (15 sets, daily range): BP systolic 73–147; BP diastolic 38–111
[2017-06-07 00:16] LABS: POINT-OF-CARE METER ID UU14162636
[2017-06-07 04:14] LABS: POINT-OF-CARE METER ID UU13113748
[2017-06-07 05:33] LABS: HEMATOCRIT 42.3 % (38.0-50.0); MCHC 33.1 G/DL (30.0-36.0); MCV 87.6 FL (86-99); MEAN PLAT.VOLUME 11.5 uM^3 (9.0-12.4); NRBC (%) 0.1 /100 WBC (0-0); PLATELET COUNT 480 K/uL (156-360); RBC DIS.WIDTH-CV 18.1 % (11.8-14.6); RBC DIS.WIDTH-SD 55.5 % (39-53); RED BLOOD COUNT 4.83 M/uL (4.00-5.50); WHITE BLOOD COUNT 20.9 K/uL (4.1-10.2)
[2017-06-07 08:09] LABS: ADD MIUA? YES; BILIRUBIN NEGATIVE; BLOOD NEGATIVE; COLOR YELLOW ((YELLOW)); GLUCOSE (STRIP) >=500; KETONES NEGATIVE; LEUKOCYTES NEGATIVE; NITRITE NEGATIVE; PROTEIN (STRIP) NEGATIVE; SPECIFIC GRAVITY 1.018 (1.000-1.030); UROBILINOGEN 0.2 MG/DL (0.2-1.0)
[2017-06-07] MEDS ORDERED: DUONEB 2.5-0.5 M3 ML AEROSOL (08:10)
[2017-06-07] MEDS ORDERED: NICOTINE PATCH1 EAC2 TD (08:10)
[2017-06-07] MEDS ORDERED: XARELTO20 MG GT (08:11)
[2017-06-07] MEDS ORDERED: CLONIDINE HCL0.1 MG GT (08:11)
[2017-06-07] MEDS ORDERED: LOPRESSOR25 MG PO (08:12)
[2017-06-07] MEDS ORDERED: VALSARTAN160 MG GT (08:13)
[2017-06-07] MEDS ORDERED: CARDIZEM90 MG PO (08:13)
[2017-06-07] MEDS ORDERED: DIAZEPAM5 MG GT (08:14)
[2017-06-07] MEDS ORDERED: LORAZEPAM2 MG/1 M1 IV (08:14)
[2017-06-07] MEDS ORDERED: QUETIAPINE FUM100 MG GT (08:14)
[2017-06-07] MEDS ORDERED: CHLORHEXIDINE473 ML MM (08:15)
[2017-06-07] MEDS ORDERED: PREVACID SOLUTA30 MG GT (08:15)
[2017-06-07] MEDS ORDERED: DOCU LIQUI50 MG/5 ML GT (08:15)
[2017-06-07] MEDS ORDERED: PREDNISONE1 MG/ML GT (08:15)
[2017-06-07] MEDS ORDERED: BISAC-EVAC10 MG PR (08:15)
[2017-06-07] MEDS ORDERED: FOLIC ACID1 MG GT (08:16)
[2017-06-07] MEDS ORDERED: NOVOLOG PE100 UNITS/ SC (08:16)
[2017-06-07] MEDS ORDERED: LEVEMIR100 UNIT/2 SC (08:16)
[2017-06-07] MEDS ORDERED: Thiamine,Vitamin B1 GT (08:16)
[2017-06-07] MEDS ORDERED: GLUCAGEN1 M2 IM/SC (08:17)
[2017-06-07] MEDS ORDERED: Zeasorb Antifungal T TP (08:17)
[2017-06-07] MEDS ORDERED: THERAGRAN1 TABLET GT (08:17)
[2017-06-07 09:22] LABS: EPITHELIAL CELLS 1+ /HPF; RED BLOOD CELLS NONE SEEN /HPF (0-5); WHITE BLOOD CELLS 0-5 /HPF (0-5)
[2017-06-07 09:23] LABS: BACTERIA NONE SEEN /HPF; CASTS NONE SEEN /LPF; CRYSTALS NONE SEEN; MUCUS NONE SEEN /LPF; OTHER BUDDING YEAST 3+; UCUL ADDED? NO
[2017-06-07 11:35] LABS: POINT-OF-CARE METER ID UU13113748
[2017-06-07 12:54] LABS: ANION GAP 10 MEQ/L (2-14); CHLORIDE 106 MEQ/L (99-109); GFR ESTIMATE (CALCULATED) > 59 mL/min/; GLUCOSE 298 mg/dL (70-99); SAMPLE HEMOLYSIS CHECK 1; SAMPLE ICTERIC CHECK 0; SAMPLE LIPEMIA CHECK 0; SODIUM 137 MEQ/L (136-147); UREA NITROGEN (BUN) 36 mg/dL (9-23)
[2017-06-07 12:57] LABS: POTASSIUM 5.5 MEQ/L (3.7-5.4)
[2017-06-07 15:17] LABS: INTER. NORMALIZED RATIO 1.1; PROTHROMBIN TIME 12.1 SEC (10.2-12.9)
[2017-06-07 17:59] LABS: POINT-OF-CARE METER ID UU13113748
[2017-06-07 20:12] LABS: HEMATOCRIT 42.5 % (38.0-50.0); MCV 85.3 FL (86-99)
[2017-06-08] VITALS (12 sets, daily range): BP systolic 0–150; BP diastolic 0–96
[2017-06-08 00:20] LABS: POINT-OF-CARE METER ID UU13113748
[2017-06-08 05:20] LABS: POINT-OF-CARE METER ID UU14162636
[2017-06-08 07:19] LABS: EOSINOPHIL (%) 0.2 % (0-5); HEMATOCRIT 41.3 % (38.0-50.0); IMMATURE GRANULOCYTE (%) 1.5 % (0.0-0.7); IMMATURE GRANULOCYTE COUNT 0.3 K/uL; INSTRUMENT ABS NEUTROPHIL CT 17.9 K/uL; MCH 29.4 PG (29.0-34.0); MCHC 33.7 G/DL (30.0-36.0); MCV 87.3 FL (86-99); MEAN PLAT.VOLUME 11.2 uM^3 (9.0-12.4); MONOCYTE (%) 5.9 % (3-12); MONOCYTE COUNT 1.3 K/uL (0-0.8); NEUTROPHIL COUNT 17.9 K/uL (1.8-6.4); PLATELET COUNT 404 K/uL (156-360); RBC DIS.WIDTH-CV 18.6 % (11.8-14.6); RBC DIS.WIDTH-SD 56.9 % (39-53); RED BLOOD COUNT 4.73 M/uL (4.00-5.50); WHITE BLOOD COUNT 21.6 K/uL (4.1-10.2)
[2017-06-08 07:46] LABS: ALKALINE PHOSPHATASE 97 IU/L (3-129); ANION GAP 7 MEQ/L (2-14); CHLORIDE 110 MEQ/L (99-109); GFR ESTIMATE (CALCULATED) > 59 mL/min/; GLUCOSE 261 mg/dL (70-99); POTASSIUM 4.5 MEQ/L (3.7-5.4); SAMPLE HEMOLYSIS CHECK 0; SAMPLE ICTERIC CHECK 0; SAMPLE LIPEMIA CHECK 0; SODIUM 141 MEQ/L (136-147); TOTAL BILIRUBIN 0.6 MG/DL (0.0-1.0); UREA NITROGEN (BUN) 27 mg/dL (9-23)
[2017-06-08 13:48] LABS: POINT-OF-CARE METER ID UU14162636
[2017-06-08 18:02] LABS: POINT-OF-CARE METER ID UU14162636
[2017-06-09] VITALS: BP 131/74
[2017-06-09 00:38] LABS: POINT-OF-CARE METER ID UU14162636; POINT-OF-CARE USER ID RADDRS44
[2017-06-09 02:00] VITALS: BP 114/78
[2017-06-09 04:00] VITALS: BP 138/94
[2017-06-09 05:58] LABS: POINT-OF-CARE METER ID UU14162636; POINT-OF-CARE USER ID RADDRS44
[2017-06-09 06:00] VITALS: BP 144/92
[2017-06-09 06:47] LABS: HEMATOCRIT 42.6 % (38.0-50.0); MCH 28.4 PG (29.0-34.0); MCHC 32.6 G/DL (30.0-36.0); MCV 86.9 FL (86-99); NRBC (%) 0.1 /100 WBC (0-0); PLATELET COUNT 409 K/uL (156-360); RBC DIS.WIDTH-CV 18.2 % (11.8-14.6); RBC DIS.WIDTH-SD 56.5 % (39-53); WHITE BLOOD COUNT 21.9 K/uL (4.1-10.2)
[2017-06-09 07:27] LABS: ALKALINE PHOSPHATASE 119 IU/L (3-129); ANION GAP 9 MEQ/L (2-14); CHLORIDE 108 MEQ/L (99-109); GFR ESTIMATE (CALCULATED) > 59 mL/min/; GLUCOSE 217 mg/dL (70-99); POTASSIUM 3.3 MEQ/L (3.7-5.4); SAMPLE HEMOLYSIS CHECK 0; SAMPLE ICTERIC CHECK 0; SAMPLE LIPEMIA CHECK 0; SODIUM 141 MEQ/L (136-147); TOTAL BILIRUBIN 0.5 MG/DL (0.0-1.0); UREA NITROGEN (BUN) 23 mg/dL (9-23)
[2017-06-09 08:00] VITALS: BP 123/84
[2017-06-09 10:00] VITALS: BP 100/76
[2017-06-09 11:49] LABS: POINT-OF-CARE METER ID UU14162636
[2017-06-09 12:11] LABS: BASE EXCESS -0.4 mEq/L (-3 to +3); BICARBONATE 22.9 mEq/L (22-26); CARBOXY HGB 2.1 % (0-5); COMMENTS - BLOOD GASES A+C+; CONTINUOUS POS AIRWAY PRESSURE 5 cm H2O; DEVICE 840; FI02 30 %; METHEMOGLOBIN 1.7 % (0-1.5); MODE SPONT; PCO2 33 mm Hg (35-45); PO2 59 mm Hg (80-100); PRES. SUPPORT 10 CM/H2O; SITE RR; TOTAL RESP RATE 25 resp/min; pH 7.45 (7.35-7.45)
== END 2017-06-09 14:35 | disposition designated cancer center or children's hospital (05) | DRG 4 ==
LOC: EME → EDBD 22:05 → EME 22:05 → 4WEST 05-07 00:26 → EDOF 05-07 00:26 → ENRESERV 05-07 00:28 → 4WEST 05-07 03:41
PROVIDERS: Emergency Medicine; Hospitalist; Internal Medicine; Internal Medicine Critical Care Medicine; Internal Medicine Nephrology; Internal Medicine Pulmonary Disease; Specialist; Surgery
DX: F10.231 Alcohol dependence with withdrawal delirium (principal); M62.82 Rhabdomyolysis; E87.1 Hypo-osmolality and hyponatremia; E87.2 Acidosis; J15.1 Pneumonia due to Pseudomonas; J96.01 Acute respiratory failure with hypoxia; J44.1 Chronic obstructive pulmonary disease with (acute) exacerbation; J90 Pleural effusion, not elsewhere classified; E87.0 Hyperosmolality and hypernatremia; J98.09 Other diseases of bronchus, not elsewhere classified; N19 Unspecified kidney failure; E87.6 Hypokalemia; K59.00 Constipation, unspecified; I95.9 Hypotension, unspecified; K92.1 Melena; G31.2 Degeneration of nervous system due to alcohol; I10 Essential (primary) hypertension; K44.9 Diaphragmatic hernia without obstruction or gangrene; R13.10 Dysphagia, unspecified; E66.9 Obesity, unspecified; R10.9 Unspecified abdominal pain; F17.210 Nicotine dependence, cigarettes, uncomplicated; I71.2 Thoracic aortic aneurysm, without rupture; R73.9 Hyperglycemia, unspecified; R14.0 Abdominal distension (gaseous); I48.1 Persistent atrial fibrillation; S80.02XA Contusion of left knee, initial encounter; W18.30XA Fall on same level, unspecified, initial encounter; Y92.000 Kitchen of unspecified non-institutional (private) residence as the place of occurrence of the external cause; Z68.31 Body mass index [BMI] 31.0-31.9, adult; Z90.81 Acquired absence of spleen; Z79.01 Long term (current) use of anticoagulants
CPT/HCPCS: 31500; 36600; 70450; 71010; 71250; 73564; 74176; 74230; 76937; 80048; 80048 91; 80053; 80200; 80202; 81003; 82140; 82272; 82550; 82553; 82803; 82948; 83605; 83690; 83735; 83880; 84100; 84484; 85014; 85018; 85025; 85027; 85384; 85610; 85730; 87040; 87070; 87077; 87086; 87186; 87205; 87641; 92610 GN; 92611 GN; 93005; 93306; 93308; 93971; 94002; 94003; 94640; 94640 76; 94760; 94799; 97530 GO; 97530 GP; 99202; 99281; 99285; C1751; C1753; C1894; C9113; G0480; J0360; J0692; J1160; J1630; J1644; J1650; J1720; J1815; J1940; J1956; J2060; J2250; J2270; J2405; J2543; J2704; J2930; J3010; J3260; J3370; J3411; J3475; J7030; J7040; J7050; J7120; J7512; S0028

== ENCOUNTER 2017-06-13 23:47 | Emergency (ER) | payer BC ==
[~2017-06-13] VITALS: Ht 185.4 cm; Wt 102.5 kg
[~2017-06-13 23:47] MED LIST changes: +BISAC-EVAC10 MG PR; +CARDIZEM90 MG PO; +CHLORHEXIDINE473 ML MM; +CLONIDINE HCL0.1 MG GT; +DIAZEPAM5 MG GT; +DOCU LIQUI50 MG/5 ML GT; +DUONEB 2.5-0.5 M3 ML AEROSOL; +FOLIC ACID1 MG GT; +GLUCAGEN1 M2 IM/SC; +LEVEMIR100 UNIT/2 SC; +LOPRESSOR25 MG PO; +LORAZEPAM2 MG/1 M1 IV; +NICOTINE PATCH1 EAC2 TD; +NOVOLOG PE100 UNITS/ SC; +PREDNISONE1 MG/ML GT; +PREVACID SOLUTA30 MG GT; +QUETIAPINE FUM100 MG GT; +THERAGRAN1 TABLET GT; +Thiamine,Vitamin B1 GT; +VALSARTAN160 MG GT; +XARELTO20 MG GT; +Zeasorb Antifungal T TP
[2017-06-14 00:38] LABS: HEMATOCRIT 40.7 % (38.0-50.0); MCH 28.5 PG (29.0-34.0); MCHC 33.4 G/DL (30.0-36.0); MCV 85.3 FL (86-99); MEAN PLAT.VOLUME 10.2 uM^3 (9.0-12.4); PLATELET COUNT 349 K/uL (156-360); RBC DIS.WIDTH-CV 17.6 % (11.8-14.6); RBC DIS.WIDTH-SD 54.8 % (39-53); RED BLOOD COUNT 4.77 M/uL (4.00-5.50); WHITE BLOOD COUNT 20.9 K/uL (4.1-10.2)
[2017-06-14 01:15] LABS: CHLORIDE 100 mEq/L (99-109); POTASSIUM 3.8 mEq/L (3.7-5.4); SODIUM 135 mEq/L (136-147)
[2017-06-14 01:17] LABS: GLUCOSE 133 mg/dL (70-99)
[2017-06-14 01:18] LABS: ANION GAP 9 MEQ/L (2-14)
[2017-06-14 01:21] LABS: GFR ESTIMATE (CALCULATED) > 59 mL/min/
[2017-06-14 01:22] LABS: UREA NITROGEN (BUN) 20 mg/dL (9-23)
[2017-06-14] MEDS ORDERED: PREDNISONE10 MG GT (07:55)
[2017-06-14] MEDS ORDERED: MIRALAX17 GM GT (07:57)
[2017-06-14] MEDS ORDERED: VITAMIN B-1100 MG GT (07:57)
[2017-06-14] MEDS ORDERED: HUMALOG100 UNIT/1 SC (08:00)
[2017-06-14] MEDS ORDERED: MAGNESIUM400 M1 GT (08:22)
[2017-06-14] MEDS ORDERED: TYLENOL REGULA325 MG GT (08:24)
[2017-06-14] MEDS ORDERED: BIOTENE MOISTUR45 ML PO (08:26)
[2017-06-14] MEDS ORDERED: ATIVAN1 MG GT (08:27)
[2017-06-14 14:58] LABS: BASE EXCESS 1.7 mEq/L (-3 to +3); BICARBONATE 25.8 mEq/L (22-26); CARBOXY HGB 2.3 % (0-5); METHEMOGLOBIN 1.1 % (0-1.5); pH 7.44 (7.35-7.45)
[2017-06-14 14:59] LABS: COMMENTS - BLOOD GASES A+C+; DEVICE T-PIECE; FI02 50 %; PCO2 38 mm Hg (35-45); PO2 73 mm Hg (80-100); SITE RR
[2017-06-14 16:02] VITALS: BP 108/88
== END 2017-06-14 16:03 | disposition designated cancer center or children's hospital (05) ==
LOC: EME → EDBD 23:47 → ENRESERV 06-14 13:02 → CANRESERV 06-14 13:02 → EME 06-14 13:07 → EDOF 06-14 13:07
PROVIDERS: Emergency Medicine; Internal Medicine
PROC: 0BW1XFZ Revision of Tracheostomy Device in Trachea, External Approach (ICD-10-PCS; principal; 2017-06-14)
DX: T85.628A Displacement of other specified internal prosthetic devices, implants and grafts, initial encounter (principal); J18.9 Pneumonia, unspecified organism; I48.91 Unspecified atrial fibrillation; F17.200 Nicotine dependence, unspecified, uncomplicated; I10 Essential (primary) hypertension
CPT/HCPCS: 36600; 70360; 70490; 71010; 80048; 82803; 83605; 85027; 87040; 94799; 99281; 99285; J2543; J3370; J7050

== ENCOUNTER → 2017-06-22 | Outpatient (CLI) | payer BC ==
[~2017-06-22] MED LIST changes: +ATIVAN1 MG GT; +BIOTENE MOISTUR45 ML PO; +HUMALOG100 UNIT/1 SC; +MAGNESIUM400 M1 GT; +MIRALAX17 GM GT; +PREDNISONE10 MG GT; +TYLENOL REGULA325 MG GT; +VITAMIN B-1100 MG GT
== END | disposition designated cancer center or children's hospital (05) ==
LOC: RAD 11:30
DX: R13.11 Dysphagia, oral phase (principal); R13.13 Dysphagia, pharyngeal phase; Z98.890 Other specified postprocedural states
CPT/HCPCS: 74230; 92611 GN; G8996 GN CJ; G8997 GN CJ; G8998 GN CJ

== ENCOUNTER → 2017-06-23 | Outpatient (CLI) | payer BC | LOC: AMB 14:24 | PROC: 8E0WXY8 Suture Removal from Trunk Region (ICD-10-PCS; principal; 2017-06-23) | DX: Z48.02 Encounter for removal of sutures (principal); Z93.1 Gastrostomy status; J96.90 Respiratory failure, unspecified, unspecified whether with hypoxia or hypercapnia; Z93.0 Tracheostomy status | CPT/HCPCS: 99212 ==